=== PATIENT | female | born 1995 | race Caucasian/White ===

== ENCOUNTER → 2020-07-02 | Outpatient (CLI) | payer OTHER ==
--- NOTE | 2020-07-03 07:29 | REP ---
INDICATION: RULE OUT METATARSAL FRACTURE COMPARISON: None. TECHNIQUE: AP, lateral, bilateral oblique views left foot. FINDINGS: The osseous structures and joint spaces are intact and normal. There is no evidence for acute fracture or dislocation. Surrounding soft tissues are unremarkable. No subcutaneous emphysema or radiodense foreign body. IMPRESSION: No acute fracture or dislocation. <Electronically signed by Bob Rogers > 07/02/20 [id number]
== END ==
LOC: M RAD 18:01
PROVIDERS: ATTEND Physician Assistant Medical
DX: S99.922A Unspecified injury of left foot, initial encounter (principal)

== ENCOUNTER 2021-05-13 09:09 | Emergency (ER) | payer OTHER ==
[~2021-05-13] VITALS: Ht 162.6 cm; Wt 63.3 kg
--- OUTSIDE RECORDS SUMMARY | 2021-05-13 09:16 | CCD | Continuity of Care Document ---
Author Author Yesica HANSON Organization Unknown Address [address] [place] [address] [place] [address] Phone [phone] Care Team Providers Care Oceanographer Assistant Name Role Phone Isaias Borrego MD AUTM Unavailable [facility] AUTM Problems Description No Information Available Social History Type Date Description Comments Sex Unknown ETOH Use Occasionally consumes alcohol Tobacco Use Start: Unknown The patient has never vaped Tobacco Use Start: Unknown Patient has never smoked Allergies and adverse reactions Description No Known Drug Allergies Medications Active Medications SIG Qnty Indications Ordering Provide r Date Cephalexin 500mg Tablets 1 tab by mouth bidx 7 days 14tabs Heber Umanzor JR., M.D. Polytrim 27094-1.1Unit/ML-% Soluti on 1 drops in both eyes four times a day x 7 days 20ml Heber Umanzor JR., M.D. 05/11/2021 Mirena (52 MG) Unknown History Medications No Active Medications Unknown - 05/11/2021 Immunizations Description No Information Available Vital Signs Date Vital Result Comment 05/11/2021 5:02pm BP Systolic 111 mmHg BP Diastolic 74 mmHg Heart Rate 75 /min Respiratory Rate 12 /min O2 % BldC Oximetry 98 % Body Temperature 98.0 F Weight 140.00 lb Height 64 inches 5'4" BMI (Body Mass Index) 24.0 kg/m2 Pain Level 5 Results Description No Information Available Procedures Date Code Description Status 05/11/2021 70253 Office/Outpatient New Low MDM 30 -44 Minutes Completed Medical Devices Description No Information Available Encounters Type Date Location Provider Dx Diagnosis Office Visit 05/11/2021 12:05p Main Office QUETA Gracia H1 0.022 Other mucopurulent conjunctivitis, left eye Assessments Date Code Description Provider 05/11/2021 H10.022 Other mucopurulent conjunctiviti s, left eye QUETA Gracia Plan of Treatment 05/11/2021 - QUETA Gracia* H10.022 Other mucopurulent conjunctivitis, left eye* Comments:* Warm packs to left eye TID x 3-5 days.start antibiotic eye gtts as directed. start abx po as wellif worseni redness fever swellign of eye worsening go to ER. f/u prn. * All * New Medication:* Cephalexin 500 mg - 1 tab by mouth bidx 7 days * Polytrim 92625-3.1 Unit/ML-% - 1 drops in both eyes four times a day x 7 days * No Active Medications - Functional Status Description No Information Available Mental Status Description No Information Available Referrals Refer to Reason for Referral Status Appt Date [facility] [place] [address] [place] [address]
--- OUTSIDE RECORDS SUMMARY | 2021-05-13 09:16 | CCD | Continuity of Care Document ---
Author Author Yesica HANSON Organization Unknown Address [address] [place] [address] [place] [address] Phone [phone] Care Team Providers Care Form Coverer Name Role Phone Isaias Borrego MD AUTM Unavailable [facility] AUTM Problems Description No Information Available Social [...] days 14tabs Heber Umanzor JR., M.D. Polytrim 42947-9.1Unit/ML-% Soluti on 1 drops in both eyes [...] 5 Results Description No Information Available Procedures Description No Information Available Medical Devices Description No Information Available Encounters Description No Information Available Assessments Description No Information Available Plan of Treatment 05/11/2021 - QUETA Gracia* All * New Medication:* Cephalexin 500 mg - 1 tab by mouth bidx 7 days * Polytrim 99095-6.1 Unit/ML-% - 1 drops in both eyes four times a day x 7 days * No Active Medications - Functional Status Description No Information Available Mental Status Description No Information Available Referrals Refer to Reason for Referral Status Appt Date [facility] Created [address] [place] [address]
--- OUTSIDE RECORDS SUMMARY | 2021-05-13 09:16 | CCD ---
Author Author [facility] Organization [facility] Address Unknown Phone Unavailable Care Team Providers Care Director Of Medicare Name Role Phone Campanaro, Mare Olga Lidia PA Unavailable Unavailable Campanaro, Mare Olga Lidia PA Unavailable Unavailable Campanaro, Mare Olga Lidia PA Unavailable Unavailable Campanaro, Mare Olga Lidia PA Unavailable Unavailable Campanaro, Mare Olga Lidia PA Unavailable Unavailable Campanaro, Mare Olga Lidia PA Unavailable Unavailable Campanaro, Mare Olga Lidia PA Unavailable Unavailable Campanaro, Mare Olga Lidia PA Unavailable Unavailable Campanaro, Mare Olga Lidia PA Unavailable Unavailable Campanaro, Mare Olga Lidia PA Unavailable Unavailable Campanaro, Mare Olga Lidia PA Unavailable Unavailable Campanaro, Mare Olga Lidia PA Unavailable Unavailable Campanaro, Mare Olga Lidia PA Unavailable Unavailable Campanaro, Mare Olga Lidia PA Unavailable Unavailable Campanaro, Mare Olga Lidia PA Unavailable Unavailable Campanaro, Mare Olga Lidia PA Unavailable Unavailable Campanaro, Mare Olga Lidia PA Unavailable Unavailable Re-disclosure Warning The records that you are about to access may contain information from federally-assisted alcohol or drug abuse programs. If such information is present, then the following federally mandated warning applies: This information has been disclosed to you from records protected by federal confidentiality rules (42 CFR part 2). The federal rules prohibit you from making any further disclosure of this information unless further disclosure is expressly permitted by the written consent of the person to whom it pertains or as otherwise permitted by 42 CFR part 2. A general authorization for the release of medical or other information is NOT sufficient for this purpose. The Federal rules restrict any use of the information to criminally investigate or prosecute any alcohol or drug abuse patient.The records that you are about to access may contain highly sensitive health information, the redisclosure of which is protected by Article 27-F of the [facility] Public Health law. If you continue you may have access to information: Regarding HIV / AIDS; Provided by facilities licensed or operated by the [facility] Office of Mental Health; or Provided by the [facility] Office for People With Developmental Disabilities. If such information is present, then the following [facility] mandated warning applies: This information has been disclosed to you from confidential records which are protected by state law. State law prohibits you from making any further disclosure of this information without the specific written consent of the person to whom it pertains, or as otherwise permitted by law. Any unauthorized further disclosure in violation of state law may result in a fine or half-way sentence or both. A general authorization for the release of medical or other information is NOT sufficient authorization for further disc losure. Encounters Encounter Providers Location Date Indications Data Source(s ) Outpatient Attender: Olga Lidia sousa 05/11/2021 12:05:00 PM EDT [facility] ([facility]) Immunizations Vaccine Date Status Description Data Source(s) COVID-19 VACCINE Pfizer 10/01/2020 12:00:00 AM EDT completed [facility] Vaccine Series Complete: NOThis Data was Submitted to [facility]. INFLUENZA VIRUS VACCINE QUADRIVALENT 2019- (6 MOS AN D UP) 07/01/2020 12:00:00 AM EST completed [facility] Medications Medication Brand Name Start Date Product Form Dose Route Admi nistrative Instructions Pharmacy Instructions Status Indications Reaction Description Data Source(s) Polymyxin B 83679 UNT/ML / Trimethoprim 1 MG/ML Ophtha lmic Solution [Polytrim] Polytrim 05/11/2021 12:00:00 AM EDT OPHTHALMIC active [facility] ([facility]) Cephalexin 500 MG Oral Tablet Cephalexin 05/11/2021 12:00:00 AM EDT ORAL active [facility] ([facility]) No Active Medications 05/11/2021 12:00:00 AM EDT completed [facility] ([facility]) Insurance Providers Payer name Policy type / Coverage type Policy ID Covered libertarian ID Covered libertarian's relationship to ramey Policy Ramey Plan Information [facility] ACTIVE DUTY [id number] SP [id number] [facility] HUMANA - O/P [id number] 18 [id number] Problems, Conditions, and Diagnoses No Information Surgeries/Procedures Procedure Description Date Indications Data Source(s) OFFICE OUTPATIENT NEW 30 MINUTES 05/11/2021 12:00:00 [facility] Results No Information Social History No Information Vital Signs ID Date Data Source UNK Name Value Range Interpretation Code Description Data Source(s) Systolic blood pressure 111 mm[Hg] 111 [facility]Hg[facility] Diastolic blood pressure 74 mm[Hg] 74 mm[Hg] [facility] ([facility]) Heart rate 75 /min 75 /min [facility] ([facility], [facility]) Respiratory rate 12 /min 12 /min [facility] ( [facility], [facility]) Oxygen saturation in Arterial blood by Pulse oximetry 98 % 98 % [facility] ([facility], [facility]) Body temperature 98.0 [degF] 98.0 [degF] [facility] ([facility], [facility]) Body weight 140.00 [lb_av] 140.00 [lb_av] [facility] ([facility], [facility]) Body height 64 [in_i] 64 [in_i] [facility] ([facility]) 5'4" Body mass index (BMI) [Ratio] 24.0 kg/m2 24.0 k g/m2 [facility] ([facility])
--- OUTSIDE RECORDS SUMMARY | 2021-05-13 13:19 | CCD ---
Author Author [facility] Organization [facility] Address Unknown Phone Unavailable Care Team Providers Care Big Data Software Engineer Name Role Phone Campanaro, Mare Olga Lidia [...] is protected by Article 27-F of the [facility] Public Health law. If you continue you may have access to information: Regarding HIV / AIDS; Provided by facilities licensed or operated by the [facility] Office of Mental Health; or Provided by the [facility] Office for People With Developmental Disabilities. If such information is present, then the following [facility] mandated warning applies: This information has been [...] law may result in a fine or fci sentence or both. A general authorization for the release of medical or other information is NOT sufficient authorization for further disc losure. Encounters Encounter Providers Location Date Indications Data Source(s ) Outpatient Attender: Olga Lidia sousa 05/11/2021 12:05:00 PM EDT [facility] ([facility]) Immunizations Vaccine Date Status Description Data Source(s) COVID-19 VACCINE Pfizer 10/01/2020 12:00:00 AM EDT completed [facility] Vaccine Series Complete: NOThis Data was Submitted to [facility] Via [employer]. INFLUENZA VIRUS VACCINE QUADRIVALENT 2019- (6 MOS AN D UP) 07/01/2020 12:00:00 AM EST completed [facility] Medications Medication Brand Name Start Date Product Form Dose Route Admi nistrative Instructions Pharmacy Instructions Status Indications Reaction Description Data Source(s) Polymyxin B 69179 UNT/ML / Trimethoprim 1 MG/ML Ophtha lmic Solution [Polytrim] Polytrim 05/11/2021 12:00:00 AM EDT OPHTHALMIC active [facility] ([facility]) Cephalexin 500 MG Oral Tablet Cephalexin 05/11/2021 12:00:00 AM EDT ORAL active [facility] ([facility]) No Active Medications 05/11/2021 12:00:00 AM EDT completed [facility] ([facility]) Insurance Providers Payer name Policy type / Coverage type Policy ID Covered libertarian ID Covered libertarian's relationship to ramey Policy Ramey Plan Information [facility] ACTIVE DUTY [id number] SP [id number] [facility] HUMANA - O/P [id number] 18 [id number] Problems, Conditions, and Diagnoses No Information Surgeries/Procedures Procedure Description Date Indications Data Source(s) OFFICE OUTPATIENT NEW 30 MINUTES [facility]11[facility] Results No Information Social History No Information Vital Signs ID Date Data Source UNK Name Value Range Interpretation Code Description Data Source(s) Systolic blood pressure 111 mm[Hg] 111 mm[Hg] [facility]) Diastolic blood pressure 74 mm[Hg] 74 mm[Hg] [facility] ([facility]) Heart rate 75 /min 75 /min [facility] ([facility], [facility]) Respiratory rate 12 /min 12 /min [facility] ( [facility], [facility]) Oxygen saturation in Arterial blood by Pulse oximetry 98 % 98 % [facility] ([facility], [facility]) Body temperature 98.0 [degF] 98.0 [degF] [facility] ([facility], [facility]) Body weight 140.00 [lb_av] 140.00 [lb_av] [facility] ([facility], [facility]) Body height 64 [in_i] 64 [in_i] [facility] ([facility]) 5'4" Body mass index (BMI) [Ratio] 24.0 kg/m2 24.0 k g/m2 [facility] ([facility])
[2021-05-13] MEDS ORDERED: LIDOCAINE 5% (LIDODERM) PATCH TD ONE (13:20)
[2021-05-13] MEDS ORDERED: diazePAM 5MG TABLET PO ONE (13:20)
[2021-05-13] MEDS ORDERED: KETOROLAC 60MG 2ML VIAL IM ONE (13:20)
[2021-05-13] MEDS ORDERED: ONDANSETRON 4 MG ORAL DISINTEGRATING TAB PO ONE (13:25)
--- NOTE | 2021-05-13 13:47 | REP ---
INDICATION: sudden LBP while squatting. COMPARISON: None. FINDINGS: Five views of the lumbosacral spine show no acute fracture, dislocation or subluxation. The L1-2 through L4-5 intervertebral disc spaces are symmetric and well maintained. There is slight narrowing at L5-S1 disc space. There is no spondylolysis or spondylolisthesis. The pedicles are intact bilaterally and there is no destructive osseous lesion. The lateral view shows loss of the normal lumbar lordosis which may reflect some degree of spasm. Incidental note is made of an IUD overlying the central sacrum. IMPRESSION: Disc space narrowing at the L5-S1 indicating some mild degenerative disc change at this level and some loss of lumbar lordosis that may reflect some degree of spasm noted. Otherwise negative lumbosacral spine series. <Electronically signed by Zion Ponce > 05/13/21 [id number]
[2021-05-13] MEDS ORDERED: METH-1165 PO (14:30)
[2021-05-13] MEDS ORDERED: NAPR-837 PO (14:30)
[2021-05-13] MEDS ORDERED: ASPE4PAD TOP (14:30)
[2021-05-13] MEDS ORDERED: HYDR-3713 PO (14:30)
[2021-05-13 14:35] VITALS: BP 133/78
[2021-05-13] MEDS ORDERED: **NOTE PATIENT COMMENT** MISC XX SCH (21:00)
== END 2021-05-13 15:22 | disposition home or self-care (01) ==
LOC: M ED 09:09
DX: M54.50 Low back pain, unspecified (principal); M51.37 Other intervertebral disc degeneration, lumbosacral region
CPT/HCPCS: 72110; 96372; 99283; J1885; Q0162